=== PATIENT | male | born 1965 | race Caucasian/White ===

== ENCOUNTER 2020-11-27 15:52 | Emergency (ER) | payer OTHER ==
[~2020-11-27 15:52] MED LIST: CRESTOR20 MG PO; ECOTRIN81 MG PO; GABAPENTIN800 MG PO; GLUCOPHAGE1000 MG PO; LANTUS100 UNIT/1 SQ; LOPRESSOR50 MG PO; NITROSTAT0.4 MG SL; NORCO 7.5-3251 EACH PO; NOVOLOG FL100 UNIT/1 SC; PLAVIX 75 MG TA75 MG PO; PROTONIX40 MG PO; TRICOR145 MG PO; ZYLOPRIM 100 M100 MG PO; [UNRECOGNIZED DRUG - OTHER] TP
[2020-11-27 18:04] LABS: HEMOGLOBIN 15.1 gm/dl (14.0-17.5); RED BLOOD COUNT 5.14 M/UL (4.20-5.50); WHITE BLOOD COUNT 7.2 K/UL (4.5-11.0)
[2020-11-27 18:28] LABS: BUN/CREATININE RATIO 18 (0-10)
[2020-11-27] MEDS ORDERED: ZOFRAN ODT 4 MG4 MG PO (20:43)
[2020-11-27] MEDS ORDERED: BENTYL 20MG TAB20 MG PO (20:44)
[2020-11-27] MEDS ORDERED: PROTONIX40 MG PO (20:44)
== END 2020-11-27 20:56 | disposition home or self-care (01) ==
LOC: ER1 15:52
PROVIDERS: Emergency Medicine
DX: K80.20 Calculus of gallbladder without cholecystitis without obstruction (principal); R74.8 Abnormal levels of other serum enzymes; E11.9 Type 2 diabetes mellitus without complications; E78.5 Hyperlipidemia, unspecified; I10 Essential (primary) hypertension; Z95.1 Presence of aortocoronary bypass graft
CPT/HCPCS: 80053; 82550; 82553; 83690; 83874; 84484; 85025; 85610; 85730; 93005; 99284; Q9967

== ENCOUNTER → 2021-02-21 | Outpatient (CLI) | payer OTHER ==
[~2021-02-21] MED LIST changes: +BENTYL 20MG TAB20 MG PO; +ZOFRAN ODT 4 MG4 MG PO
== END ==
LOC: KOH-I 01-29 16:30
DX: Z87.891 Personal history of nicotine dependence (principal); R91.1 Solitary pulmonary nodule
CPT/HCPCS: 71271

== ENCOUNTER 2022-05-19 21:38 | Emergency (ER) | payer OTHER | END 2022-05-20 00:50 | disposition home or self-care (01) | LOC: ER1 21:38 | DX: R51.9 Headache, unspecified (principal); Z20.822 Contact with and (suspected) exposure to COVID-19; E11.9 Type 2 diabetes mellitus without complications; I11.0 Hypertensive heart disease with heart failure; Z79.4 Long term (current) use of insulin; Z88.2 Allergy status to sulfonamides; Z88.1 Allergy status to other antibiotic agents; Z95.1 Presence of aortocoronary bypass graft | CPT/HCPCS: 87081; 87880; 99284; U0002 ==